=== PATIENT | female | born 1980 | race Caucasian/White ===

== ENCOUNTER 2022-05-19 09:02 | Inpatient (IN) | payer MEDICAID ==
[~2022-05-19] VITALS: Ht 177.8 cm; Wt 98.3 kg
[2022-05-20] MEDS ORDERED: ONDANSETRON 4MG ORAL DISINTEGRATING TAB PO PRN (13:35)
[2022-05-20 14:50] VITALS: BP 130/88
[2022-05-20] MEDS ORDERED: MELA1TAB9 PO (15:57)
[2022-05-20] MEDS ORDERED: CLIN-250 PO (15:57)
[2022-05-20] MEDS ORDERED: QUET1TAB17 PO (15:57)
[2022-05-20] MEDS ORDERED: GABA-282 PO (15:57)
[2022-05-20] MEDS ORDERED: POTA20PW PO (15:57)
[2022-05-20] MEDS ORDERED: ONDA-83 PO (15:57)
[2022-05-20] MEDS ORDERED: AMLO1TAB25 PO (15:57)
[2022-05-20] MEDS ORDERED: THIA100T7 PO (15:57)
[2022-05-20] MEDS ORDERED: FOLI1TAB11 PO (15:57)
[2022-05-20] MEDS ORDERED: APAP325T4 PO (15:57)
[2022-05-20] MEDS ORDERED: HOME MED LIST COMPLETE! XX SCH (16:00)
[2022-05-20] MEDS: LACTOBACILLUS ACIDOPHILUS CAP (BACID) PO SCH ×2 (18:06→20:19)
[2022-05-20] MEDS: GABAPENTIN 300 MG CAP PO SCH ×2 (18:06→20:19)
[2022-05-20] MEDS: CLINDAMYCIN 150MG CAPSULE PO SCH ×2 (18:06→20:19)
[2022-05-20 19:00] VITALS: BP_SYST 132; BP_SYST 142; BP_DIAS 78; BP_DIAS 98
[2022-05-20] MEDS: ACETAMINOPHEN TAB 650MG DOSE (2X325MG) PO PRN (20:19)
[2022-05-20] MEDS: RAMELTEON 8 MG TAB (ROZEREM) PO SCH (20:19)
[2022-05-20] MEDS: DOCUSATE SODIUM 100MG CAPSULE PO SCH (20:19)
[2022-05-20] MEDS: SENNA 8.6 MG TAB (SENOKOT) PO SCH (20:20)
[2022-05-20] MEDS: QUEtiapine FUMARATE 25 MG TAB PO SCH (20:20)
[2022-05-20 21:00] VITALS: BP 132/78
[2022-05-20] MEDS ORDERED: POTASSIUM CHLORIDE 10MEQ SR TABLET PO SCH (21:00)
[2022-05-21 06:00] VITALS: BP 134/84
[2022-05-21 06:23] LABS: BASO # 0.1 10^3/uL (0.0-0.2); BASO % 0.8 % (0.0-1.0); EOS # 0.2 10^3/uL (0.0-0.5); EOS % 2.4 % (0.0-3.0); HEMATOCRIT 38.4 % (36.0-47.0); HEMOGLOBIN 12.7 g/dl (12.0-15.5); LYMPH # 2.9 10^3/uL (1.5-5.0); LYMPH % 32.9 % (24.0-44.0); MEAN CORPUSCULAR HEMOGLOBIN 33.1 pg (27.0-33.0); MEAN CORPUSCULAR HGB CONC 33.1 g/dl (32.0-36.5); MONO # 0.9 10^3/uL (0.0-0.8); MONO % 10.4 % (2.0-8.0); NEUTROPHILS # 4.6 10^3/uL (1.5-8.5); PLATELET COUNT, AUTOMATED 348 10^3/uL (150-450); RED BLOOD COUNT 3.84 10^6/uL (4.00-5.40); WHITE BLOOD COUNT 8.7 10^3/uL (4.0-10.0)
[2022-05-21 06:52] LABS: ALBUMIN 2.7 G/DL (3.2-5.2); ALKALINE PHOSPHATASE 104 U/L (46-116); ALT/SGPT 44 U/L (7.0-40); AST/SGOT 153 U/L (<34); BILIRUBIN,TOTAL 0.4 MG/DL (0.3-1.2); BLOOD UREA NITROGEN 11 MG/DL (9-23); CALCIUM LEVEL 9.5 MG/DL (8.5-10.1); CARBON DIOXIDE LEVEL 27 MMOL/L (20-31); CHLORIDE LEVEL 100 MMOL/L (98-107); CREATININE FOR GFR 0.41 MG/DL (0.55-1.30); GLOMERULAR FILTRATION RATE > 60.0 (>58); GLUCOSE, FASTING 92 MG/DL (60-100); POTASSIUM SERUM 4.6 MMOL/L (3.5-5.1); SODIUM LEVEL 134 MMOL/L (136-145); TOTAL PROTEIN 8.3 G/DL (5.7-8.2)
[2022-05-21] MEDS: DOCUSATE SODIUM 100MG CAPSULE PO SCH ×2 (09:02→20:23)
[2022-05-21] MEDS: ACETAMINOPHEN TAB 650MG DOSE (2X325MG) PO PRN (09:03)
[2022-05-21] MEDS: PANTOPRAZOLE 40MG TAB (PROTONIX) PO SCH (09:03)
[2022-05-21] MEDS: FOLIC ACID 1MG TAB PO SCH (09:03)
[2022-05-21] MEDS: CLINDAMYCIN 150MG CAPSULE PO SCH ×4 (09:03→20:21)
[2022-05-21] MEDS: THIAMINE 100 MG TAB PO SCH (09:03)
[2022-05-21] MEDS: GABAPENTIN 300 MG CAP PO SCH ×3 (09:03→20:20)
[2022-05-21] MEDS: LACTOBACILLUS ACIDOPHILUS CAP (BACID) PO SCH ×4 (09:06→20:21)
[2022-05-21] MEDS: ENOXAPARIN 40MG/0.4ML SYRINGE (J1650 PER 10MG) SC SCH (12:12)
[2022-05-21 14:00] VITALS: BP 120/91
[2022-05-21 20:00] VITALS: BP 139/97
[2022-05-21] MEDS: RAMELTEON 8 MG TAB (ROZEREM) PO SCH (20:19)
[2022-05-21] MEDS: QUEtiapine FUMARATE 25 MG TAB PO SCH (20:21)
[2022-05-21] MEDS: SENNA 8.6 MG TAB (SENOKOT) PO SCH (20:23)
[2022-05-22 06:00] VITALS: BP 114/74
[2022-05-22] MEDS: CLINDAMYCIN 150MG CAPSULE PO SCH ×2 (09:08→13:22)
[2022-05-22] MEDS: GABAPENTIN 300 MG CAP PO SCH ×3 (09:08→20:51)
[2022-05-22] MEDS: FOLIC ACID 1MG TAB PO SCH (09:08)
[2022-05-22] MEDS: DOCUSATE SODIUM 100MG CAPSULE PO SCH ×2 (09:08→20:55)
[2022-05-22] MEDS: LACTOBACILLUS ACIDOPHILUS CAP (BACID) PO SCH ×4 (09:08→20:52)
[2022-05-22] MEDS: ENOXAPARIN 40MG/0.4ML SYRINGE (J1650 PER 10MG) SC SCH (09:09)
[2022-05-22] MEDS: PANTOPRAZOLE 40MG TAB (PROTONIX) PO SCH (09:09)
[2022-05-22] MEDS: THIAMINE 100 MG TAB PO SCH (09:09)
[2022-05-22 14:00] VITALS: BP 135/87
[2022-05-22 20:00] VITALS: BP 138/92
[2022-05-22] MEDS: RAMELTEON 8 MG TAB (ROZEREM) PO SCH (20:52)
[2022-05-22] MEDS: QUEtiapine FUMARATE 25 MG TAB PO SCH (20:53)
[2022-05-22] MEDS: SENNA 8.6 MG TAB (SENOKOT) PO SCH (20:53)
[2022-05-23 06:00] VITALS: BP 126/80
[2022-05-23] MEDS: LACTOBACILLUS ACIDOPHILUS CAP (BACID) PO SCH ×4 (09:03→20:37)
[2022-05-23] MEDS: THIAMINE 100 MG TAB PO SCH (09:04)
[2022-05-23] MEDS: FOLIC ACID 1MG TAB PO SCH (09:04)
[2022-05-23] MEDS: GABAPENTIN 300 MG CAP PO SCH ×3 (09:04→20:37)
[2022-05-23] MEDS: DOCUSATE SODIUM 100MG CAPSULE PO SCH ×2 (09:04→21:00)
[2022-05-23] MEDS: PANTOPRAZOLE 40MG TAB (PROTONIX) PO SCH (09:05)
[2022-05-23] MEDS: ENOXAPARIN 40MG/0.4ML SYRINGE (J1650 PER 10MG) SC SCH (09:05)
[2022-05-23 14:00] VITALS: BP 128/89
[2022-05-23] MEDS: NICOTINE 7 MG/24 HR TRANSDERMAL TD SCH (14:50)
[2022-05-23 20:00] VITALS: BP 162/110
[2022-05-23] MEDS: ACETAMINOPHEN TAB 650MG DOSE (2X325MG) PO PRN (20:38)
[2022-05-23] MEDS: RAMELTEON 8 MG TAB (ROZEREM) PO SCH (20:38)
[2022-05-23] MEDS: QUEtiapine FUMARATE 25 MG TAB PO SCH (21:00)
[2022-05-23] MEDS: SENNA 8.6 MG TAB (SENOKOT) PO SCH (21:00)
[2022-05-23 21:38] VITALS: BP 138/78
[2022-05-24] MEDS: ACETAMINOPHEN TAB 650MG DOSE (2X325MG) PO PRN ×3 (03:41→20:15)
[2022-05-24] MEDS: GABAPENTIN 300 MG CAP PO SCH ×3 (04:04→20:14)
[2022-05-24 06:00] VITALS: BP 126/86
[2022-05-24 07:12] LABS: BASO # 0.1 10^3/uL (0.0-0.2); BASO % 0.8 % (0.0-1.0); EOS # 0.2 10^3/uL (0.0-0.5); EOS % 2.8 % (0.0-3.0); HEMATOCRIT 36.5 % (36.0-47.0); HEMOGLOBIN 11.9 g/dl (12.0-15.5); LYMPH # 2.6 10^3/uL (1.5-5.0); LYMPH % 33.4 % (24.0-44.0); MEAN CORPUSCULAR HEMOGLOBIN 32.5 pg (27.0-33.0); MEAN CORPUSCULAR HGB CONC 32.6 g/dl (32.0-36.5); MEAN CORPUSCULAR VOLUME 99.7 fl (80.0-96.0); MONO # 0.8 10^3/uL (0.0-0.8); MONO % 10.6 % (2.0-8.0); NEUTROPHILS # 4.1 10^3/uL (1.5-8.5); NEUTROPHILS % 52.1 % (36.0-66.0); PLATELET COUNT, AUTOMATED 330 10^3/uL (150-450); RED BLOOD COUNT 3.66 10^6/uL (4.00-5.40); WHITE BLOOD COUNT 7.9 10^3/uL (4.0-10.0)
[2022-05-24 07:41] LABS: BLOOD UREA NITROGEN 13 MG/DL (9-23); CALCIUM LEVEL 8.8 MG/DL (8.5-10.1); CARBON DIOXIDE LEVEL 27 MMOL/L (20-31); CHLORIDE LEVEL 101 MMOL/L (98-107); GLOMERULAR FILTRATION RATE > 60.0 (>58); GLUCOSE, FASTING 91 MG/DL (60-100); POTASSIUM SERUM 4.2 MMOL/L (3.5-5.1); SODIUM LEVEL 135 MMOL/L (136-145)
[2022-05-24] MEDS: DOCUSATE SODIUM 100MG CAPSULE PO SCH ×2 (09:00→21:00)
[2022-05-24] MEDS: PANTOPRAZOLE 40MG TAB (PROTONIX) PO SCH (09:05)
[2022-05-24] MEDS: FOLIC ACID 1MG TAB PO SCH (09:05)
[2022-05-24] MEDS: NICOTINE 7 MG/24 HR TRANSDERMAL TD SCH (09:05)
[2022-05-24] MEDS: ENOXAPARIN 40MG/0.4ML SYRINGE (J1650 PER 10MG) SC SCH (09:06)
[2022-05-24] MEDS: LACTOBACILLUS ACIDOPHILUS CAP (BACID) PO SCH ×4 (09:06→20:14)
[2022-05-24] MEDS: THIAMINE 100 MG TAB PO SCH (09:06)
[2022-05-24 20:00] VITALS: BP 133/104
[2022-05-24] MEDS: RAMELTEON 8 MG TAB (ROZEREM) PO SCH (20:14)
[2022-05-24] MEDS: QUEtiapine FUMARATE 25 MG TAB PO SCH (21:00)
[2022-05-24] MEDS: SENNA 8.6 MG TAB (SENOKOT) PO SCH (21:00)
[2022-05-24 21:20] VITALS: BP 134/88
[2022-05-25] MEDS: ACETAMINOPHEN TAB 650MG DOSE (2X325MG) PO PRN ×4 (01:22→21:10)
[2022-05-25] MEDS: GABAPENTIN 300 MG CAP PO SCH ×3 (04:26→21:10)
[2022-05-25 06:00] VITALS: BP 134/91
[2022-05-25] MEDS: ENOXAPARIN 40MG/0.4ML SYRINGE (J1650 PER 10MG) SC SCH (09:09)
[2022-05-25] MEDS: LACTOBACILLUS ACIDOPHILUS CAP (BACID) PO SCH ×4 (09:09→21:10)
[2022-05-25] MEDS: NICOTINE 7 MG/24 HR TRANSDERMAL TD SCH (09:09)
[2022-05-25] MEDS: THIAMINE 100 MG TAB PO SCH (09:10)
[2022-05-25] MEDS: FOLIC ACID 1MG TAB PO SCH (09:10)
[2022-05-25] MEDS: DOCUSATE SODIUM 100MG CAPSULE PO SCH ×2 (09:10→21:11)
[2022-05-25] MEDS: PANTOPRAZOLE 40MG TAB (PROTONIX) PO SCH (09:10)
[2022-05-25 14:00] VITALS: BP 124/84
[2022-05-25] MEDS ORDERED: AMITRIPTYLINE 10MG TABLET PO SCH ×2 (17:00→21:00)
[2022-05-25 20:00] VITALS: BP 131/89
[2022-05-25] MEDS: SENNA 8.6 MG TAB (SENOKOT) PO SCH (21:11)
[2022-05-25] MEDS: RAMELTEON 8 MG TAB (ROZEREM) PO SCH (21:11)
[2022-05-25] MEDS ORDERED: rOPINIRole 0.25 MG TAB(REQUIP) PO ONE (23:30)
[2022-05-25] MEDS ORDERED: GABAPENTIN 300 MG CAP PO ONE (23:30)
[2022-05-26] MEDS: ACETAMINOPHEN TAB 650MG DOSE (2X325MG) PO PRN ×2 (05:28→13:20)
[2022-05-26] MEDS: GABAPENTIN 300 MG CAP PO SCH ×3 (05:52→21:07)
[2022-05-26 06:00] VITALS: BP 150/98
[2022-05-26 06:12] LABS: BASO # 0.1 10^3/uL (0.0-0.2); BASO % 0.7 % (0.0-1.0); EOS # 0.3 10^3/uL (0.0-0.5); EOS % 2.8 % (0.0-3.0); HEMATOCRIT 36.7 % (36.0-47.0); LYMPH # 3.6 10^3/uL (1.5-5.0); LYMPH % 37.7 % (24.0-44.0); MEAN CORPUSCULAR HEMOGLOBIN 32.5 pg (27.0-33.0); MEAN CORPUSCULAR HGB CONC 32.7 g/dl (32.0-36.5); MEAN CORPUSCULAR VOLUME 99.5 fl (80.0-96.0); MONO # 0.8 10^3/uL (0.0-0.8); MONO % 7.9 % (2.0-8.0); NEUTROPHILS # 4.8 10^3/uL (1.5-8.5); NEUTROPHILS % 50.5 % (36.0-66.0); PLATELET COUNT, AUTOMATED 313 10^3/uL (150-450); RED BLOOD COUNT 3.69 10^6/uL (4.00-5.40); WHITE BLOOD COUNT 9.5 10^3/uL (4.0-10.0)
[2022-05-26 06:33] LABS: BLOOD UREA NITROGEN 9 MG/DL (9-23); CALCIUM LEVEL 8.8 MG/DL (8.5-10.1); CARBON DIOXIDE LEVEL 25 MMOL/L (20-31); CHLORIDE LEVEL 103 MMOL/L (98-107); CREATININE FOR GFR 0.36 MG/DL (0.55-1.30); GLOMERULAR FILTRATION RATE > 60.0 (>58); GLUCOSE, FASTING 93 MG/DL (60-100); POTASSIUM SERUM 3.9 MMOL/L (3.5-5.1); SODIUM LEVEL 136 MMOL/L (136-145)
[2022-05-26] MEDS: NICOTINE 7 MG/24 HR TRANSDERMAL TD SCH (08:45)
[2022-05-26] MEDS: ENOXAPARIN 40MG/0.4ML SYRINGE (J1650 PER 10MG) SC SCH (08:45)
[2022-05-26] MEDS: FOLIC ACID 1MG TAB PO SCH (08:46)
[2022-05-26] MEDS: PANTOPRAZOLE 40MG TAB (PROTONIX) PO SCH (08:46)
[2022-05-26] MEDS: THIAMINE 100 MG TAB PO SCH (08:46)
[2022-05-26] MEDS: LACTOBACILLUS ACIDOPHILUS CAP (BACID) PO SCH ×4 (08:46→21:06)
[2022-05-26] MEDS: DOCUSATE SODIUM 100MG CAPSULE PO SCH ×2 (08:51→21:07)
[2022-05-26] MEDS ORDERED: METOPROLOL TART 25 MG TABLET PO ONE (09:40)
[2022-05-26 09:45] VITALS: BP 138/91
[2022-05-26] MEDS: AMITRIPTYLINE 10MG TABLET PO SCH ×2 (11:43→21:07)
[2022-05-26 13:18] VITALS: BP 130/95
[2022-05-26] MEDS: METOPROLOL TART 25 MG TABLET PO SCH ×2 (13:20→21:06)
[2022-05-26 20:00] VITALS: BP 124/84
[2022-05-26] MEDS: SENNA 8.6 MG TAB (SENOKOT) PO SCH (21:07)
[2022-05-26] MEDS: RAMELTEON 8 MG TAB (ROZEREM) PO SCH (21:07)
[2022-05-27 06:00] VITALS: BP 118/71
[2022-05-27] MEDS: METOPROLOL TART 25 MG TABLET PO SCH ×3 (06:03→21:49)
[2022-05-27] MEDS: GABAPENTIN 300 MG CAP PO SCH ×3 (08:59→20:25)
[2022-05-27] MEDS: NICOTINE 7 MG/24 HR TRANSDERMAL TD SCH (08:59)
[2022-05-27] MEDS: ENOXAPARIN 40MG/0.4ML SYRINGE (J1650 PER 10MG) SC SCH (08:59)
[2022-05-27] MEDS: PANTOPRAZOLE 40MG TAB (PROTONIX) PO SCH (08:59)
[2022-05-27] MEDS: THIAMINE 100 MG TAB PO SCH (08:59)
[2022-05-27] MEDS: FOLIC ACID 1MG TAB PO SCH (08:59)
[2022-05-27] MEDS: LACTOBACILLUS ACIDOPHILUS CAP (BACID) PO SCH ×4 (08:59→20:26)
[2022-05-27] MEDS: DOCUSATE SODIUM 100MG CAPSULE PO SCH ×2 (08:59→20:26)
[2022-05-27] MEDS: AMITRIPTYLINE 10MG TABLET PO SCH ×2 (11:31→20:26)
[2022-05-27 14:00] VITALS: BP 133/94
[2022-05-27 19:56] VITALS: BP 125/84
[2022-05-27] MEDS: RAMELTEON 8 MG TAB (ROZEREM) PO SCH (20:26)
[2022-05-27] MEDS: ACETAMINOPHEN TAB 650MG DOSE (2X325MG) PO PRN (20:26)
[2022-05-27] MEDS: SENNA 8.6 MG TAB (SENOKOT) PO SCH (20:26)
[2022-05-28] MEDS: ACETAMINOPHEN TAB 650MG DOSE (2X325MG) PO PRN (04:37)
[2022-05-28] MEDS: METOPROLOL TART 25 MG TABLET PO SCH ×3 (05:23→21:27)
[2022-05-28 06:00] VITALS: BP 124/78
[2022-05-28] MEDS: FOLIC ACID 1MG TAB PO SCH (09:07)
[2022-05-28] MEDS: DOCUSATE SODIUM 100MG CAPSULE PO SCH ×2 (09:07→21:00)
[2022-05-28] MEDS: AMITRIPTYLINE 10MG TABLET PO SCH ×2 (09:08→21:28)
[2022-05-28] MEDS: GABAPENTIN 300 MG CAP PO SCH ×3 (09:08→21:27)
[2022-05-28] MEDS: ENOXAPARIN 40MG/0.4ML SYRINGE (J1650 PER 10MG) SC SCH (09:08)
[2022-05-28] MEDS: LACTOBACILLUS ACIDOPHILUS CAP (BACID) PO SCH ×4 (09:08→21:27)
[2022-05-28] MEDS: PANTOPRAZOLE 40MG TAB (PROTONIX) PO SCH (09:08)
[2022-05-28] MEDS: NICOTINE 7 MG/24 HR TRANSDERMAL TD SCH (09:09)
[2022-05-28] MEDS: THIAMINE 100 MG TAB PO SCH (09:10)
[2022-05-28] MEDS ORDERED: PILL CUTTER 1 EACH XX PRN (13:45)
[2022-05-28 14:39] VITALS: BP 124/87
[2022-05-28 20:00] VITALS: BP 128/78
[2022-05-28] MEDS: SENNA 8.6 MG TAB (SENOKOT) PO SCH (21:00)
[2022-05-28] MEDS: RAMELTEON 8 MG TAB (ROZEREM) PO SCH (21:27)
[2022-05-28] MEDS: traMADol 50 MG TAB PO PRN (21:29)
[2022-05-29] MEDS: METOPROLOL TART 25 MG TABLET PO SCH ×3 (05:34→20:47)
[2022-05-29 06:00] VITALS: BP 127/87
[2022-05-29] MEDS: GABAPENTIN 300 MG CAP PO SCH ×3 (08:23→20:35)
[2022-05-29] MEDS: THIAMINE 100 MG TAB PO SCH (08:23)
[2022-05-29] MEDS: AMITRIPTYLINE 10MG TABLET PO SCH ×2 (08:23→20:35)
[2022-05-29] MEDS: PANTOPRAZOLE 40MG TAB (PROTONIX) PO SCH (08:23)
[2022-05-29] MEDS: DOCUSATE SODIUM 100MG CAPSULE PO SCH ×2 (08:23→20:35)
[2022-05-29] MEDS: LACTOBACILLUS ACIDOPHILUS CAP (BACID) PO SCH ×4 (08:23→20:35)
[2022-05-29] MEDS: FOLIC ACID 1MG TAB PO SCH (08:24)
[2022-05-29] MEDS: ENOXAPARIN 40MG/0.4ML SYRINGE (J1650 PER 10MG) SC SCH (08:24)
[2022-05-29] MEDS: NICOTINE 7 MG/24 HR TRANSDERMAL TD SCH (08:24)
[2022-05-29 14:00] VITALS: BP 124/82
[2022-05-29] MEDS: traMADol 50 MG TAB PO PRN ×2 (14:15→20:38)
[2022-05-29 20:00] VITALS: BP 127/80
[2022-05-29] MEDS: RAMELTEON 8 MG TAB (ROZEREM) PO SCH (20:35)
[2022-05-29] MEDS: SENNA 8.6 MG TAB (SENOKOT) PO SCH (20:46)
[2022-05-30 06:00] VITALS: BP 105/66
[2022-05-30] MEDS: METOPROLOL TART 25 MG TABLET PO SCH ×3 (06:00→21:12)
[2022-05-30] MEDS: ENOXAPARIN 40MG/0.4ML SYRINGE (J1650 PER 10MG) SC SCH (08:33)
[2022-05-30] MEDS: FOLIC ACID 1MG TAB PO SCH (08:34)
[2022-05-30] MEDS: GABAPENTIN 300 MG CAP PO SCH ×3 (08:34→21:10)
[2022-05-30] MEDS: AMITRIPTYLINE 10MG TABLET PO SCH ×2 (08:34→21:10)
[2022-05-30] MEDS: THIAMINE 100 MG TAB PO SCH (08:34)
[2022-05-30] MEDS: PANTOPRAZOLE 40MG TAB (PROTONIX) PO SCH (08:34)
[2022-05-30] MEDS: NICOTINE 7 MG/24 HR TRANSDERMAL TD SCH (08:34)
[2022-05-30] MEDS: LACTOBACILLUS ACIDOPHILUS CAP (BACID) PO SCH ×4 (08:34→21:10)
[2022-05-30] MEDS: DOCUSATE SODIUM 100MG CAPSULE PO SCH ×2 (08:35→21:11)
[2022-05-30 14:00] VITALS: BP 103/66
[2022-05-30 20:02] VITALS: BP 138/84
[2022-05-30] MEDS: SENNA 8.6 MG TAB (SENOKOT) PO SCH (21:10)
[2022-05-30] MEDS: RAMELTEON 8 MG TAB (ROZEREM) PO SCH (21:11)
[2022-05-30] MEDS: ACETAMINOPHEN TAB 650MG DOSE (2X325MG) PO PRN (21:11)
[2022-05-30] MEDS: traMADol 50 MG TAB PO PRN (21:11)
[2022-05-31] MEDS: METOPROLOL TART 25 MG TABLET PO SCH ×3 (05:52→20:45)
[2022-05-31 06:00] VITALS: BP 122/81
[2022-05-31] MEDS: GABAPENTIN 300 MG CAP PO SCH ×3 (08:28→20:45)
[2022-05-31] MEDS: PANTOPRAZOLE 40MG TAB (PROTONIX) PO SCH (08:28)
[2022-05-31] MEDS: LACTOBACILLUS ACIDOPHILUS CAP (BACID) PO SCH ×4 (08:28→20:44)
[2022-05-31] MEDS: THIAMINE 100 MG TAB PO SCH (08:28)
[2022-05-31] MEDS: AMITRIPTYLINE 10MG TABLET PO SCH ×2 (08:28→20:45)
[2022-05-31] MEDS: ENOXAPARIN 40MG/0.4ML SYRINGE (J1650 PER 10MG) SC SCH (08:28)
[2022-05-31] MEDS: FOLIC ACID 1MG TAB PO SCH (08:28)
[2022-05-31] MEDS: DOCUSATE SODIUM 100MG CAPSULE PO SCH ×2 (08:31→20:45)
[2022-05-31 08:38] LABS: BASO # 0.1 10^3/uL (0.0-0.2); EOS # 0.5 10^3/uL (0.0-0.5); EOS % 5.1 % (0.0-3.0); HEMATOCRIT 35.6 % (36.0-47.0); HEMOGLOBIN 11.6 g/dl (12.0-15.5); LYMPH # 2.7 10^3/uL (1.5-5.0); LYMPH % 30.3 % (24.0-44.0); MEAN CORPUSCULAR HEMOGLOBIN 32.6 pg (27.0-33.0); MEAN CORPUSCULAR HGB CONC 32.6 g/dl (32.0-36.5); MONO # 0.7 10^3/uL (0.0-0.8); MONO % 7.7 % (2.0-8.0); NEUTROPHILS % 55.7 % (36.0-66.0); PLATELET COUNT, AUTOMATED 335 10^3/uL (150-450); RED BLOOD COUNT 3.56 10^6/uL (4.00-5.40)
[2022-05-31 09:31] LABS: BLOOD UREA NITROGEN 8 MG/DL (9-23); CALCIUM LEVEL 9.1 MG/DL (8.5-10.1); CARBON DIOXIDE LEVEL 25 MMOL/L (20-31); CHLORIDE LEVEL 104 MMOL/L (98-107); CREATININE FOR GFR 0.41 MG/DL (0.55-1.30); GLOMERULAR FILTRATION RATE > 60.0 (>58); GLUCOSE, FASTING 110 MG/DL (60-100); POTASSIUM SERUM 4.2 MMOL/L (3.5-5.1); SODIUM LEVEL 139 MMOL/L (136-145)
[2022-05-31] MEDS: NICOTINE 7 MG/24 HR TRANSDERMAL TD SCH (10:20)
[2022-05-31 14:00] VITALS: BP 131/81
[2022-05-31 20:00] VITALS: BP 122/78
[2022-05-31] MEDS: RAMELTEON 8 MG TAB (ROZEREM) PO SCH (20:44)
[2022-05-31] MEDS: ACETAMINOPHEN TAB 650MG DOSE (2X325MG) PO PRN (20:45)
[2022-05-31] MEDS: SENNA 8.6 MG TAB (SENOKOT) PO SCH (20:45)
[2022-05-31] MEDS: traMADol 50 MG TAB PO PRN (20:46)
[2022-06-01] MEDS: METOPROLOL TART 25 MG TABLET PO SCH ×3 (05:47→20:43)
[2022-06-01 06:00] VITALS: BP 136/86
[2022-06-01] MEDS: DOCUSATE SODIUM 100MG CAPSULE PO SCH ×2 (07:31→20:40)
[2022-06-01] MEDS: THIAMINE 100 MG TAB PO SCH (07:31)
[2022-06-01] MEDS: GABAPENTIN 300 MG CAP PO SCH ×3 (07:31→20:41)
[2022-06-01] MEDS: NICOTINE 7 MG/24 HR TRANSDERMAL TD SCH (07:32)
[2022-06-01] MEDS: PANTOPRAZOLE 40MG TAB (PROTONIX) PO SCH (07:32)
[2022-06-01] MEDS: AMITRIPTYLINE 10MG TABLET PO SCH ×2 (07:32→20:41)
[2022-06-01] MEDS: LACTOBACILLUS ACIDOPHILUS CAP (BACID) PO SCH ×4 (07:32→20:40)
[2022-06-01] MEDS: FOLIC ACID 1MG TAB PO SCH (07:32)
[2022-06-01] MEDS: ENOXAPARIN 40MG/0.4ML SYRINGE (J1650 PER 10MG) SC SCH (07:33)
[2022-06-01 14:00] VITALS: BP 108/70
[2022-06-01 20:00] VITALS: BP 131/79
[2022-06-01] MEDS: ACETAMINOPHEN TAB 650MG DOSE (2X325MG) PO PRN (20:40)
[2022-06-01] MEDS: SENNA 8.6 MG TAB (SENOKOT) PO SCH (20:40)
[2022-06-01] MEDS: traMADol 50 MG TAB PO PRN (20:41)
[2022-06-01] MEDS: RAMELTEON 8 MG TAB (ROZEREM) PO SCH (20:41)
[2022-06-02] MEDS: METOPROLOL TART 25 MG TABLET PO SCH (05:29)
[2022-06-02 06:00] VITALS: BP 124/73
[2022-06-02] MEDS: NICOTINE 7 MG/24 HR TRANSDERMAL TD SCH (08:15)
[2022-06-02] MEDS: AMITRIPTYLINE 10MG TABLET PO SCH (08:17)
[2022-06-02] MEDS: LACTOBACILLUS ACIDOPHILUS CAP (BACID) PO SCH (08:17)
[2022-06-02] MEDS: GABAPENTIN 300 MG CAP PO SCH (08:17)
[2022-06-02 08:18] VITALS: BP 124/73
[2022-06-02] MEDS: THIAMINE 100 MG TAB PO SCH (08:18)
[2022-06-02] MEDS: PANTOPRAZOLE 40MG TAB (PROTONIX) PO SCH (08:18)
[2022-06-02] MEDS: FOLIC ACID 1MG TAB PO SCH (08:18)
[2022-06-02] MEDS: DOCUSATE SODIUM 100MG CAPSULE PO SCH (08:18)
[2022-06-02] MEDS: ENOXAPARIN 40MG/0.4ML SYRINGE (J1650 PER 10MG) SC SCH (08:18)
[2022-06-02] MEDS ORDERED: AMLO1TAB25 PO (10:34)
[2022-06-02] MEDS ORDERED: FOLI1TAB11 PO (10:34)
[2022-06-02] MEDS ORDERED: GABA-282 PO (10:35)
[2022-06-02] MEDS ORDERED: NICO7PA TD (10:35)
[2022-06-02] MEDS ORDERED: THIA100T7 PO (10:35)
[2022-06-02] MEDS ORDERED: METO1TAB87 PO (10:35)
[2022-06-02] MEDS ORDERED: TRAM50TA2 PO (10:35)
[2022-06-02] MEDS ORDERED: AMIT10TA7 PO (10:35)
== END 2022-06-02 11:30 | disposition home or self-care (01) | DRG 49 ==
LOC: M PM&R 05-20 14:42
PROVIDERS: ADMIT Physical Medicine & Rehabilitation; ATTEND Physical Medicine & Rehabilitation
DX: G61.0 Guillain-Barre syndrome (principal); E83.42 Hypomagnesemia; K76.0 Fatty (change of) liver, not elsewhere classified; E87.6 Hypokalemia; Z74.09 Other reduced mobility; Z74.1 Need for assistance with personal care; F17.200 Nicotine dependence, unspecified, uncomplicated; F41.9 Anxiety disorder, unspecified; F32.A Depression, unspecified; I10 Essential (primary) hypertension; Z79.899 Other long term (current) drug therapy; K04.7 Periapical abscess without sinus